=== PATIENT | female | born 1960 | race Caucasian/White ===

== ENCOUNTER 2018-06-14 11:47 | Emergency (ER) | payer BC ==
[2018-06-14 11:57] VITALS: BP 182/77; PULSE 64; TEMP 97.7; BMI 23.0
[2018-06-14] MEDS ORDERED: IBUPROFEN 400 MG TABLET (FP) PO ONE ×2 (12:46→13:01)
[2018-06-14] MEDS ORDERED: TETANUS AND DIPHTHERIA TOXOID 0.5 ML DISP.SYRIN IM ONE (12:48)
[2018-06-14] MEDS ORDERED: BACITRACIN 15 GM TUBE TOPICAL OINTMENT TP ONE (12:48)
[2018-06-14] MEDS ORDERED: DIPHTH,PERTUSS(ACELL),TET 0.5 ML DISP.SYRIN IM ONE ×2 (12:57→13:02)
[2018-06-14] MEDS ORDERED: BACITRACIN 15 GM TUBE TOPICAL OINTMENT ONE (13:01)
--- NOTE | 2018-06-14 13:42 | PDOC ---
History of Present Illness - General Chief Complaint: Injury Stated Complaint: FALL, INJURY Time Seen by Provider: 06/14/18 12:32 History Source: Patient - History of Present Illness Initial Comments: 06/14/18 13:38 58 year old female c/o trip and fall with right arm out stretched out 2 hours prior to arrival patient is noted to have abrasion to upper lip and lower lip. no loos teeth. able to open mouth. denies head trauma/ loc. last tetanus unkown Past History - Past Medical History Allergies/Adverse Reactions: Allergies Allergy/AdvReac Type Severity Reaction Status Date / Time No Known Allergies Allergy Unverified 06/14/18 11:54 Home Medications: Ambulatory Orders Amlodipine Besylate 5 mg PO ONCE #30 tablet 12/08/13 Levothyroxine [Synthroid -] 100 mcg PO DAILY 06/14/18 COPD: No HTN: Yes Thyroid Disease: Yes - Suicide/Smoking/Psychosocial Hx Smoking History: Never smoked Review of Systems - Review of Systems Able to Perform ROS?: Yes Is the patient limited Tongan proficient: No Musculoskeletal: Yes: Other (wrist pain) *Physical Exam - Vital Signs Last Vital Signs Temp Pulse Resp BP Pulse Ox 97.7 F 64 20 182/77 H 99 06/14/18 11:55 06/14/18 11:55 06/14/18 11:55 06/14/18 11:55 06/14/18 11:55 - Physical Exam General Appearance: Yes: Appropriately Dressed Extremity: positive: Normal Capillary Refill, Normal Inspection, Normal Range of Motion, Other (pain to right wrist limited rom no deformity) Integumentary: positive: Other (abrasion to upper and lower lip/ ) Neurologic: positive: Fully Oriented, Alert Moderate Sedation - Procedure Monitoring Vital Signs: Procedure Monitoring Vital Signs Temperature 97.7 F 06/14/18 11:55 Pulse Rate 64 06/14/18 11:55 Respiratory Rate 20 06/14/18 11:55 Blood Pressure 182/77 H 06/14/18 11:55 O2 Sat by Pulse Oximetry (%) 99 06/14/18 11:55 ED Treatment Course - RADIOLOGY Radiology Studies Ordered: Category Date Time Status WRIST W/HAND-RIGHT* [RAD] Stat Radiology 06/14/18 12:47 Taken - Medications Given in the ED: ED Medications Discontinued Medications Generic Name Dose Route Start Last Admin Trade Name Freq PRN Reason Stop Dose Admin Bacitracin 1 applic 06/14/18 12:48 06/14/18 13:06 Bacitracin - TP 06/14/18 12:49 1 applic ONCE ONE Administration Diphtheria/Tetanus/Acell Pertussis 0.5 ml 06/14/18 12:57 06/14/18 13:08 Boostrix - IM 06/14/18 12:58 0.5 ml .ONCE ONE Administration Ibuprofen 400 mg 06/14/18 12:46 06/14/18 13:06 Motrin - PO 06/14/18 12:47 400 mg ONCE ONE Administration Tetanus/Diphtheria Toxoids Adsorbed 0.5 ml 06/14/18 12:48 06/14/18 13:10 Decavac IM 06/14/18 12:49 Not Given .ONCE ONE Progress Note - Progress Note Progress Note: A: wrist pain; abrasion P: xray RICE tetanus *DC/Admit/Observation/Transfer Diagnosis at time of Disposition: Wrist pain, right, Abrasion, face without infection - Discharge Dispostion Disposition: HOME Condition at time of disposition: Good - Referrals Referrals: Christiano Wade MD [Primary Care Provider] - Call tomorrow Alejandro Osman MD [Staff Physician] - 24 hours Vamsi Turner MD [Staff Physician] - 24 hours - Patient Instructions Printed Discharge Instructions: How to Prevent Falls Additional Instructions: please follow up with an orthopedic/ hand doctor if pain persist within 1 week. REST ICE elevate extremity keep in splint Additional Instructions: * Please call your personal physician to report your Emergency Department visit and to report your progress, if any. * If there is no improvement in symptoms in 2 days call your physician. * Return to the Emergency Department for any worsening symptoms. - Post Discharge Activity Forms/Work/School Notes: Back to Work
== END 2018-06-14 13:49 | disposition home or self-care (01) ==
LOC: JERFT 11:47
PROC: 3E0234Z Introduction of Serum, Toxoid and Vaccine into Muscle, Percutaneous Approach (ICD-10-PCS; principal; 2018-06-14)
DX: S69.81XA Other specified injuries of right wrist, hand and finger(s), initial encounter (principal); S00.511A Abrasion of lip, initial encounter; W18.39XA Other fall on same level, initial encounter; Y93.89 Activity, other specified; Y92.89 Other specified places as the place of occurrence of the external cause; Y99.8 Other external cause status; E03.9 Hypothyroidism, unspecified; I10 Essential (primary) hypertension
CPT/HCPCS: 73110-TC-RT-FY; 73130-TC-RT-FY; 90471; 90715; 99281-25

== ENCOUNTER 2021-04-23 08:41 | Emergency (ER) | payer BC ==
[2021-04-23 08:55] VITALS: BP 138/78; PULSE 63; TEMP 98.3; BMI 51.6
[2021-04-23] MEDS ORDERED: KETOROLAC TROMETHAMINE 30 MG/1 ML VIAL IM ONE (09:38)
[2021-04-23] MEDS ORDERED: LIDOCAINE 5% TOPICAL PATCH TP ONE (09:38)
[2021-04-23] MEDS ORDERED: LIDOCAINE 5% TOPICAL PATCH ONE (09:42)
[2021-04-23] MEDS ORDERED: KETOROLAC TROMETHAMINE 30 MG/1 ML VIAL ONE (09:44)
[2021-04-23] MEDS ORDERED: LIDOCAINE PATCH REMOVAL MC ONE (22:00)
== END 2021-04-23 10:40 | disposition home or self-care (01) ==
LOC: JER 08:41
PROC: 3E0233Z Introduction of Anti-inflammatory into Muscle, Percutaneous Approach (ICD-10-PCS; principal; 2021-04-23)
DX: M75.02 Adhesive capsulitis of left shoulder (principal)
CPT/HCPCS: 73030-TC-LT-FY; 99284-25